=== PATIENT | female | born 1970 | race African-American/Black ===

== ENCOUNTER → 2017-01-26 | Outpatient (CLI) | payer OTHER ==
[~2017-01-26] MED LIST: BACTRIM DS TABL1 TAB PO; CIPRO PO; DARVOCET-N 1001 TAB PO; PRILOSEC PO; VICODIN 5/500 T1 TAB PO
--- NOTE | ~2017-01-26 | CT3 ---
[facility] A Service of [facility] RADIOLOGY TEXT RESULTS PATIENT: JEANETTE NEGRETE [facility] UN[facility] #: [id number] AGE: [address]: Jesse Guerrier MD SEX: F ORDER DR: [id number] [facility]. [place], [place] [address] [id number] O MR#: [id number] Acc #: [id number] NAME: JEANETTE NEGRETE : 1970 SEX: F STUDY DATE/TIME: 01/26/2017 11:14 UNIT: [facility]AT ROOM: STUDY DESCRIPTION: CT Abd and Pelv WWo Cont Attending Physician: Jesse Guerrier M.D. Referring Physician: Jesse Guerrier M.D. Ordering Physician: Jesse Guerrier M.D. Primary Care Physician: Hammad Patino MEDICAL IMAGING REPORT This report is preliminary unless electronic signature is present EXAM CT of the abdomen and pelvis with and without contrast HISTORY Lower abdominal pain and hematuria for one month. TECHNIQUE CT of the abdomen and pelvis was performed before and after the administration of IV contrast using a multiphase renal protocol. Coronal and reformatted images were obtained. This CT exam was performed with one or more of the following radiation dose reduction techniques: automatic exposure control, adjustment of mA and/or kV according to patient size, and iterative reconstruction. COMPARISON 09/13/2009 FINDINGS Lung bases are clear. Scattered tiny cysts within the liver. The gallbladder and spleen are unremarkable. No evidence for renal stone. No evidence for renal mass. No evidence for hydronephrosis. The adrenal glands are unremarkable. The pancreas is unremarkable. Pelvis: The urinary bladder is unremarkable. The patient has had a hysterectomy. There are adnexal cysts bilaterally, which are likely physiologic. Colon is unremarkable. There is no free fluid. Bone windows are unremarkable. IMPRESSION 1. No evidence for renal stone or renal mass. 2. Bilateral adnexal cysts which are likely physiologic. [facility] A Service of [facility] RADIOLOGY TEXT RESULTS PATIENT: JEANETTE NEGRETE LOCATION: [facility] : 70 UNIT #: [id number] AGE: [address]: Jesse Guerrier MD SEX: F ORDER DR: Dictated by... Maik Capellan M.D. THIS IS AN ELECTRONICALLY VERIFIED REPORT Maik Capellan M.D. at 01/26/2017 7:27 PM ARS/to TD: 01/26/2017 19:19 JOB #: [id number] MEDICAL IMAGING REPORT Page 1 of 1 COPY
[2017-01-26 17:01] LABS: POC - CREATININE 0.61 mg/dL (0.44-1.03); POC - GFR >60.0 mL/min (>60)
== END | disposition home or self-care (01) ==
LOC: CCAT 10:30
PROVIDERS: Urology
DX: R10.30 Lower abdominal pain, unspecified (principal); R31.9 Hematuria, unspecified; N85.8 Other specified noninflammatory disorders of uterus
CPT/HCPCS: 74178; 82565; Q9967